=== PATIENT | female | born 1970 | race Two or more races ===

== ENCOUNTER → 2025-07-08 | Outpatient (CLI) | payer MEDICAID, SELFPAY ==
--- NOTE | 2025-07-08 | XR_ITS ---
EXAMINATION: Bilateral knees AP single view TECHNIQUE: AP standing bilateral knees single view Date and time: July 08, 2025, 1213 hours INDICATION: Bilateral knee pain 6 years. FINDINGS: Prominent osteopenia Severe narrowing [id number] medial joint space right knee Advanced osteoarthritis lateral joint space right knee Advanced narrowing medial joint space left knee Significant osteitis lateral joint space left knee IMPRESSION: Severe narrowing [id number] medial joint space right knee Advanced narrowing medial joint space left knee
== END | disposition home or self-care (01) ==
PROVIDERS: PCP Nurse Practitioner Family; Referring Provider Orthopaedic Surgery; Visit Provider Orthopaedic Surgery
DX: M25.862 Other specified joint disorders, left knee (principal); M25.861 Other specified joint disorders, right knee
CPT/HCPCS: 73565